=== PATIENT | male | born 1955 ===

== ENCOUNTER 2023-06-08 12:20 | Emergency (ER) | payer OTHER ==
[~2023-06-08] VITALS: Ht 177.8 cm; Wt 90.7 kg
[~2023-06-08 12:20] MED LIST: ARICEPT10 MG; BRIMONIDINE TART5 ML; CHILDREN'S ASPI81 MG PO; CLONAZEPAM0.5 M1 PO; COMBIGAN EYE DRO5 ML OP; CRESTOR20 MG PO; DIALYVITE TABL1 EACH PO; ESCITALOPRA5 MG/5 ML; GLUMETZA500 MG PO; LUMIGAN2.5 M1 OP; MONTELUKAST SOD10 MG PO; NASAL MIST126 ML; QUETIAPINE FUM400 M1 PO; RESTORIL30 M1 PO; TAMSULOSIN HCL0.4 MG PO; [UNRECOGNIZED DRUG - OTHER] OP
[2023-06-08] MEDS ORDERED: LEVOFLOXACIN750 MG PO (17:50)
[2023-06-08] MEDS ORDERED: DIABETIC T100 MG/51 PO (17:50)
== END 2023-06-08 17:56 | disposition home or self-care (01) ==
LOC: ER 12:20
DX: J20.9 Acute bronchitis, unspecified (principal); I10 Essential (primary) hypertension; Z88.2 Allergy status to sulfonamides
CPT/HCPCS: 36415; 71046; 93005; 94640; 96365; 99284; J2930

== ENCOUNTER 2023-06-12 23:09 | Inpatient (IN) | payer OTHER ==
[~2023-06-12] VITALS: Ht 152.4 cm; Wt 90.7 kg
[~2023-06-12 23:09] MED LIST changes: +DIABETIC T100 MG/51 PO; +LEVOFLOXACIN750 MG PO
[2023-06-12] MEDS ORDERED: G-ZYNCOF 20-40473 ML (23:23)
[2023-06-18] MEDS ORDERED: SPIRIVA RESPIMAT4 GM (09:23)
[2023-06-18] MEDS ORDERED: FOLIC ACID1 MG (09:24)
[2023-06-18] MEDS ORDERED: CETIRIZINE HCL5 MG (09:24)
[2023-06-18] MEDS ORDERED: VITAMIN C1000 MG (09:24)
[2023-06-18] MEDS ORDERED: PROVENTIL HFA6.7 GM (09:24)
[2023-06-18] MEDS ORDERED: TAMSULOSIN HCL0.4 MG (09:24)
[2023-06-18] MEDS ORDERED: LEVOTHYROXINE50 MCG (09:25)
[2023-06-18] MEDS ORDERED: KETOROLAC TROMET3 ML (09:25)
== END 2023-06-20 14:56 | disposition home or self-care (01) | DRG 179 ==
LOC: ER 23:09 → SEC-K 06-13 13:39 → MEDJ 06-13 13:39
PROVIDERS: ADMIT Internal Medicine; ATTEND Internal Medicine
PROC: 8E0ZXY6 Isolation (ICD-10-PCS; principal; 2023-06-13)
PROC: XW033E5 Introduction of Remdesivir Anti-infective into Peripheral Vein, Percutaneous Approach, New Technology Group 5 (ICD-10-PCS; 2023-06-13)
PROC: 3E0F7SF Introduction of Other Gas into Respiratory Tract, Via Natural or Artificial Opening (ICD-10-PCS; 2023-06-13)
PROC: 3E0F7GC Introduction of Other Therapeutic Substance into Respiratory Tract, Via Natural or Artificial Opening (ICD-10-PCS; 2023-06-13)
PROC: 4A12X4Z Monitoring of Cardiac Electrical Activity, External Approach (ICD-10-PCS; 2023-06-14)
DX: U07.1 COVID-19 (principal); J40 Bronchitis, not specified as acute or chronic; J84.10 Pulmonary fibrosis, unspecified; R09.02 Hypoxemia; G47.33 Obstructive sleep apnea (adult) (pediatric); E11.9 Type 2 diabetes mellitus without complications; E03.8 Other specified hypothyroidism; Z79.4 Long term (current) use of insulin; Z79.84 Long term (current) use of oral hypoglycemic drugs

== ENCOUNTER 2023-09-16 20:19 | Emergency (ER) | payer OTHER ==
[~2023-09-16] VITALS: Ht 175.3 cm; Wt 84.8 kg
[~2023-09-16 20:19] MED LIST changes: +CETIRIZINE HCL5 MG; +FOLIC ACID1 MG; +G-ZYNCOF 20-40473 ML; +KETOROLAC TROMET3 ML; +LEVOTHYROXINE50 MCG; +PROVENTIL HFA6.7 GM; +SPIRIVA RESPIMAT4 GM; +TAMSULOSIN HCL0.4 MG; +VITAMIN C1000 MG
[2023-09-16 22:12] LABS: URINE APPEARANCE Cloudy; URINE BILIRRUBIN Negative (NEGATIVE); URINE BLOOD Trace; URINE COLOR Yellow; URINE GLUCOSE Negative (NEGATIVE); URINE LEUKOCYTE Trace; URINE NITRATE Negative; URINE PROTEIN Negative (NEGATIVE); URINE UROBILINOGEN 0.2 E.U./dl
[2023-09-16 22:15] LABS: URINE BACTERIA 51.6 uL (0.0-1933); URINE RBC 15.2 uL (0.0-20.8)
[2023-09-16 22:16] LABS: HEMATOCRIT 47.6 % (39.0-48.0); MEAN CELL VOLUME 93.2 fL (80.0-100.00); MEAN CORPUSCULAR HEMOGLOBIN 31.3 pg (27.00-32.0); MEAN CORPUSCULAR HGB CONC 33.6 g/dl (32.0-36.0); PLATELET COUNT 172 K/uL (150-450); RED BLOOD COUNT 5.11 M/uL (4.00-6.00); RED CELL DISTRIBUTION WIDTH 14.7 % (11.5-14.5)
[2023-09-16 22:35] LABS: ALBUMIN 4.2 gm/dL (3.4-5.0); BILIRUBIN TOTAL 0.74 mg/dL (0.3-1.2); CALCIUM 10.2 mg/dL (8.5-10.1); CREATININE SERUM 1.23 mg/dL (0.70-1.30); GFR 58.34; GLOBULINA 4.6 G/DL (2.4-3.5); POTASSIUM 4.41 mEq/L (3.5-5.1); TOTAL PROTEIN 8.8 gm/dL (6.4-8.2)
== END 2023-09-17 01:00 | disposition home or self-care (01) ==
LOC: ER 20:19
PROVIDERS: Emergency Medicine
DX: A05.9 Bacterial foodborne intoxication, unspecified (principal); K29.70 Gastritis, unspecified, without bleeding; Z88.2 Allergy status to sulfonamides; Z20.822 Contact with and (suspected) exposure to COVID-19; E11.9 Type 2 diabetes mellitus without complications; Z79.84 Long term (current) use of oral hypoglycemic drugs; Z95.0 Presence of cardiac pacemaker; E03.9 Hypothyroidism, unspecified; J84.10 Pulmonary fibrosis, unspecified; N41.8 Other inflammatory diseases of prostate
CPT/HCPCS: 36415; 96365; 96366; 99284; J2405; J7030